=== PATIENT | male | born 1985 | race Two or more races ===

== ENCOUNTER 2017-03-22 14:44 | Emergency (ER) | payer SELFPAY ==
[~2017-03-22] VITALS: Ht 167.6 cm; Wt 83.9 kg
[2017-03-22] MEDS ORDERED: TYLENOL EXTRA500 MG ORAL (17:05)
[2017-03-22] MEDS ORDERED: ROBAXIN-750750 MG PO (17:05)
[2017-03-22 17:10] VITALS: BP 151/119
--- NOTE | 2017-03-22 23:43 | Emergency Room Report ---
History of Present Illness General Chief Complaint: Headache Source: Patient Present Illness HPI The patient is a 31-year-old male who denies any medical history presenting for headache and pain/ numbness to the left arm. He states that this began at approximately 8 AM this morning. He states that he was feeling anxious and then the symptoms began. Headache described as an 8/10 dull ache to the back of the head. the pain radiates down the neck and the left arm. He denies previous neck injury. He denies any other symptoms including N, V, F, CP, SOB, dizziness, blurred vision Allergies: Coded Allergies: ASPIRIN (Verified Allergy, Unknown, 03/22/17) Patient History Past Medical History: see triage record Pertinent Family History: none Reviewed Nursing Documentation: PMH: Agreed, PSxH: Agreed Nursing Documentation-PMH Past Medical History: No Stated History Review of Systems All Other Systems: negative except mentioned in HPI Physical Exam Vital Signs Date Time Temp Pulse Resp B/P (MAP) Pulse Ox O2 Delivery O2 Flow Rate FiO2 03/22/17 14:49 98.2 98 16 148/83 99 Room Air Sp02 EP Interpretation: reviewed, normal General Appearance: no apparent distress, alert, GCS 15, non-toxic Head: normocephalic, atraumatic Eyes: bilateral eye normal inspection, bilateral eye PERRL ENT: hearing grossly normal, normal pharynx, no angioedema, normal voice Neck: full range of motion, no bony tend, supple/symm/no masses, tender lateral - L Respiratory: chest non-tender, lungs clear, normal breath sounds, speaking full sentences Cardiovascular #1: regular rate, rhythm, no edema Gastrointestinal: normal bowel sounds, non tender, soft, non-distended, no guarding, no rebound Musculoskeletal: back normal, gait/station normal, normal range of motion, non- tender Neurologic: alert, oriented x3, responsive, motor strength/tone normal, sensory intact, speech normal Psychiatric: judgement/insight normal, memory normal, mood/affect normal, no suicidal/homicidal ideation Skin: normal color, no rash, warm/dry, well hydrated Medical Decision Making PA Attestation Dr. Gramajo is my supervising physician. Patient management was discussed with my supervising physician Diagnostic Impression: Primary Impression: Muscle strain Additional Impression: Headache Qualified Codes: R51 - Headache ER Course The patient is a 31-year-old male who denies any medical history presenting for headache and pain/ numbness to the left arm. Differential diagnoses include but not limited to anxiety, migraine, CVA, among others PE: vitals stable. NAD Head is NC/AT. Neck soft and supple. L sided TTP RRR Lungs CTA bilat CN II-XII grossly intact. CT scan of head and C-spine both unremarkable. The patient states the symptoms have resolved. Will be discharged home. ER precautions are given CT/MRI/US Diagnostic Results CT/MRI/US Diagnostic Results #1: Imaging Test Ordered: CT head Impression unremarkable CT/MRI/US Diagnostic Results #2: Imaging Test Ordered: CT C spine Impression unremarkable Last Vital Signs Date Time Temp Pulse Resp B/P (MAP) Pulse Ox O2 Delivery O2 Flow Rate FiO2 03/22/17 17:10 97.8 96 18 151/119 98 Room Air Status: improved Disposition: HOME, SELF-CARE Condition: Improved Scripts Acetaminophen* (TYLENOL EXTRA STRENGTH*) 500 Mg Tablet 500 MG ORAL Q8H Y for Prn Headache/Temp > 101, #30 TAB 0 Refills Prov: ROCÍO LIZ 03/22/17 Methocarbamol* (ROBAXIN-750*) 750 Mg Tablet 750 MG PO TID, #21 TAB 0 Refills Prov: ROCÍO LIZ. 03/22/17 Referrals: NOT CHOSEN [facility]/MD,REFERRING (PCP) Patient Instructions: Muscle Strain, [id number], General Headache Without Cause Additional Instructions: I discussed my findings with the patient. All questions and concerns have been answered. Treatment and medication compliance have been addressed. I advised the patient that they need to follow up with PMD in 3-5 days. Return to ED if symptoms worsen, new symptoms arise, or if needed for any reason. Patient verbalized understanding of discharge instructions. ROCÍO LIZ Mar 22, 2017 23:43
--- NOTE | 2017-03-23 10:29 | Diagnostic Imaging Report ---
Indication: Neck pain and trauma Technique: Continuous helical imaging of the cervical spine was obtained transaxially from the skull base to the upper thoracic spine. 2-D coronal and sagittal reformatted images were obtained. Automatic Exposure Control was utilized. Total Dose length Product (DLP): 441.[address] Dose Index Volume (CTDIvol): 21.88 mGy Comparison: None Findings: There is no evidence of an acute fracture or malalignment. Atlantoaxial alignment appears normal. Height and configuration of the vertebral bodies and intervertebral discs are within normal limits. Uncovertebral joints and facets are unremarkable. There is no soft tissue swelling. Impression: Negative cervical spine CT The CT scanner at [facility] [place] is accredited by the [employer] and the scans are performed using dose optimization techniques as appropriate to a performed exam including Automatic Exposure control.
--- NOTE | 2017-03-23 11:19 | Diagnostic Imaging Report ---
Indication: Headache Technique: Contiguous 5 mm thick transaxial imaging of the head obtained in a Siemens Sensation [address] scanner. Soft tissue and bone windows generated. Automatic Exposure Control was utilized. Total Dose length Product (DLP): 1435.[address] Dose Index Volume (CTDIvol): 70.38 mGy Comparison: none Findings: The size and configuration of the cortical sulci, basal cisterns, and ventricles are within normal limits for age. There is no mass effect, midline shift, or edema identified. There is no evidence of acute hemorrhage or abnormal intra-axial or extra-axial fluid collections. The bones and soft tissues are unremarkable. Impression: No mass effect, edema or acute bleed. [facility] has communicated the preliminary results to the Emergency Department. Their findings are largely concordant with this report. The CT scanner at [facility] is accredited by the [employer] and the scans are performed using dose optimization techniques as appropriate to a performed exam including Automatic Exposure control.
== END 2017-03-22 17:10 | disposition home or self-care (01) ==
LOC: EMR 15:05
DX: S46.912A Strain of unspecified muscle, fascia and tendon at shoulder and upper arm level, left arm, initial encounter (principal); X58.XXXA Exposure to other specified factors, initial encounter; Y92.9 Unspecified place or not applicable; R51 Headache; M54.2 Cervicalgia
CPT/HCPCS: 70450; 72125; 99284

== ENCOUNTER 2018-11-22 23:08 | Emergency (ER) | payer SELFPAY ==
[~2018-11-22] VITALS: Ht 167.6 cm; Wt 90.7 kg
[~2018-11-22 23:08] MED LIST: ROBAXIN-750750 MG PO; TYLENOL EXTRA500 MG ORAL
[2018-11-22 23:15] VITALS: BP 153/96
[2018-11-22] MEDS ORDERED: Ketorolac 30mg Inj IV ONE (23:45)
[2018-11-22 23:50] LABS: BASOPHILS % (AUTO) 1.6 % (0.0-2.0); EOSINOPHILS % (AUTO) 1.2 % (0.0-3.0); HEMOGLOBIN 14.7 G/DL (14.2-18.0); LYMPHOCYTES % (AUTO) 31.4 % (20.0-45.0); MEAN CORPUSCULAR VOLUME 88 FL (80-99); MONOCYTES % (AUTO) 9.3 % (1.0-10.0); NEUTROPHILS % (AUTO) 56.5 % (45.0-75.0); PLATELET COUNT 492 K/UL (150-450); RED BLOOD COUNT 5.12 M/UL (4.70-6.10); RED CELL DISTRIBUTION WIDTH 12.4 % (11.6-14.8); WHITE BLOOD COUNT 12.6 K/UL (4.8-10.8)
[2018-11-22 23:53] LABS: APPEARANCE,URINE CLEAR; BILIRUBIN, URINE NEGATIVE (NEGATIVE); COLOR,URINE PALE YELLOW; GLUCOSE, URINE (UA) NEGATIVE (NEGATIVE); KETONES,URINE NEGATIVE (NEGATIVE); LEUKOCYTE ESTERASE ,URINE 2+ (NEGATIVE); NITRITE,URINE NEGATIVE (NEGATIVE); PH,URINE 6.5 (4.5-8.0); PROTEIN,URINE NEGATIVE (NEGATIVE); UROBILINOGEN,URINE NORMAL MG/DL (0.0-1.0)
--- NOTE | 2018-11-22 23:56 | Emergency Room Report ---
History of Present Illness General Chief Complaint: Abdominal Pain Source: Patient Present Illness HPI This is a 33-year-old male with no past medical history. He presents with chief complaint abdominal pain. Onset for about a week to week and half now. Pain is to the lower quadrant. He has diarrhea for a week. No vomiting. When he eats he has nausea. No fever chills. No urinary complaint. Pain is crampy in nature. 7 out of 10. He also has a history of pilonidal abscess that was I& D at [facility] a year ago. Occasionally he gets some pain and drainage over that area. No redness. Worse with palpation. Allergies: Coded Allergies: ASPIRIN (Verified Allergy, Unknown, 03/22/17) Patient History Past Medical History: none, see triage record, old chart reviewed Past Surgical History: none Pertinent Family History: none Social History: Denies: smoking Immunizations: other Reviewed Nursing Documentation: PMH: Agreed; PSxH: Agreed Nursing Documentation-PMH Past Medical History: No Stated History Review of Systems Eye: Denies: eye pain, blurred vision ENT: Denies: ear pain, nose congestion, throat swelling Respiratory: Denies: cough, shortness of breath Cardiovascular: Denies: chest pain, palpitations Gastrointestinal: Reports: abdominal pain; Denies: diarrhea, nausea, vomiting Musculoskeletal: Denies: back pain, joint pain Skin: Denies: rash Neurological: Denies: headache, numbness Endocrine: Denies: increased thirst, increased urine Hematologic/Lymphatic: Denies: easy bruising All Other Systems: negative except mentioned in HPI Physical Exam Vital Signs Date Time Temp Pulse Resp B/P (MAP) Pulse Ox O2 Delivery O2 Flow Rate FiO2 11/22/18 23:11 99.0 102 18 153/96 (115) 98 Room Air Vitals with high blood pressure Sp02 EP Interpretation: reviewed, normal General Appearance: well appearing, no apparent distress, alert Head: normocephalic, atraumatic Eyes: bilateral eye PERRL, bilateral eye EOMI ENT: hearing grossly normal, normal pharynx Neck: full range of motion, supple, no meningismus Respiratory: chest non-tender, lungs clear, normal breath sounds Cardiovascular #1: regular rate, rhythm, no murmur Gastrointestinal: normal bowel sounds, non tender, no mass, no organomegaly, no bruit, non-distended Rectal: other - Pilonidal area: There is a pinpoint opening with very scant discharge. No erythema. Musculoskeletal: back normal, gait/station normal, normal range of motion Psychiatric: mood/affect normal Medical Decision Making Diagnostic Impression: Primary Impression: Diverticulitis large intestine Qualified Codes: K57.32 - Diverticulitis of large intestine without perforation or abscess without bleeding Additional Impressions: Horseshoe kidney Pilonidal cyst ER Course Patient with abdominal pain. He has a diverticulitis. Also with a horseshoe kidney. No complication. Will discharge home. CT/MRI/US Diagnostic Results CT/MRI/US Diagnostic Results : Imaging Test Ordered: CT abdomen pelvis Impression Read by radiologist. Horseshoe kidney with the hydronephrosis. Acute diverticulitis of descending colon. Last Vital Signs Date Time Temp Pulse Resp B/P (MAP) Pulse Ox O2 Delivery O2 Flow Rate FiO2 11/22/18 23:15 99.0 107 18 153/96 98 Room Air Status: improved Disposition: HOME, SELF-CARE Condition: Stable Scripts Mupirocin* (MUPIROCIN*) 22 Gm Oint...g. 1 APPLIC TOPIC THREE TIMES A DAY, #22 GM Prov: Valente Magallon MD 11/23/18 Metronidazole* (FLAGYL*) 500 Mg Tablet 500 MG ORAL BID, #14 TAB Prov: Valente Magallon MD 11/23/18 Ciprofloxacin Hcl* (CIPROFLOXACIN HCL*) 500 Mg Tablet 500 MG ORAL Q12H, #14 TAB 0 Refills Prov: Valente Magallon MD 11/23/18 Referrals: NOT CHOSEN [facility]/,REFERRING (PCP) Additional Instructions: Follow-up with your doctor in a week for follow-up. Clean pilonidal area with hydrogen peroxide and then apply antibiotic ointment. Cover with dressing. Return if symptoms worsen. Valente Magallon MD Nov 22, 2018 23:56
[2018-11-22 23:57] LABS: ANION GAP 9 mmol/L (5-15); BLOOD UREA NITROGEN 14 mg/dL (7-18); CARBON DIOXIDE 25 MMOL/L (21-32); CHLORIDE 104 MMOL/L (98-107); CREATININE 0.9 MG/DL (0.55-1.30); POTASSIUM 3.5 MMOL/L (3.5-5.1); SODIUM 138 MMOL/L (136-145)
[2018-11-23 00:04] LABS: ALANINE AMINOTRANSFERASE 39 U/L (12-78); ALBUMIN 3.9 G/DL (3.4-5.0); ALBUMIN/GLOBULIN RATIO 0.8 (1.0-2.7); ALKALINE PHOSPHATASE 84 U/L (46-116); ASPARTATE AMINO TRANSFERASE 11 U/L (15-37); BILIRUBIN,TOTAL 0.2 MG/DL (0.2-1.0)
--- NOTE | 2018-11-23 00:42 | Diagnostic Imaging Report ---
Indication: Abdominal pain for one week Technique: Spiral acquisitions obtained through the abdomen and pelvis. No oral contrast utilized, per emergency room physician request No IV contrast utilized, per referring physician request.. Multiplanar reconstructions were generated. Total dose length product 961.77 mGycm. CTDIvol(s) 18.6 mGy. Dose reduction achieved using automated exposure control Comparison: None Findings: The appendix is normal. There is colonic diverticulosis. There is infiltration of the pericolonic fat at the junction of the distal descending of the proximal sigmoid colon. No extraluminal gas or loculated fluid collections are evident. No small bowel distention. No free or loculated intraperitoneal gas or fluid. The distal esophagus, stomach, duodenum are unremarkable. Lack of IV contrast limits assessment of the solid organs. There is a horseshoe kidney. A cyst is seen in the isthmus. There is a 3 mm calcification in the lower pole of the right moiety, presumably in a calyx there is no evidence of hydronephrosis or hydroureter. No ureteral calculi demonstrated. The liver, gallbladder, bile ducts, pancreas, spleen, adrenals are all unremarkable. No retroperitoneal or mesenteric mass or adenopathy. No pelvic mass or adenopathy. Unremarkable bladder. Patchy area of groundglass opacity is seen at the left lung base. The bones are unremarkable. Impression: Evidence of uncomplicated acute distal descending/proximal sigmoid diverticulitis Horseshoe kidney. Right moiety calyceal calculus and isthmic cyst noted Left basilar groundglass opacity, nonspecific but could represent an area of inflammation/pneumonia. Correlate with clinical findings This essentially agrees with the preliminary interpretation provided overnight by [facility]. The CT scanner at [facility] is accredited by the [employer] and the scans are performed using protocols designed to limit radiation exposure to as low as reasonably achievable to attain images of sufficient resolution adequate for diagnostic evaluation.
[2018-11-23] MEDS ORDERED: METRONIDAZOLE500 MG ORAL (01:04)
[2018-11-23] MEDS ORDERED: MUPIROCIN22 GM TOPIC (01:04)
[2018-11-23] MEDS ORDERED: CIPROFLOXACIN500 M2 ORAL (01:04)
[2018-11-23 01:12] VITALS: BP_SYST 147; BP_DIAS 92; BP_DIAS 94
[2018-11-23] MEDS ORDERED: Ciprofloxacin 500mg tab ORAL ONE (01:15)
[2018-11-23] MEDS ORDERED: metroNIDAZOLE 500mg tab ORAL ONE (01:15)
== END 2018-11-23 01:13 | disposition home or self-care (01) ==
LOC: EMR 23:45
DX: K57.32 Diverticulitis of large intestine without perforation or abscess without bleeding (principal); L05.91 Pilonidal cyst without abscess; Q63.1 Lobulated, fused and horseshoe kidney; N13.30 Unspecified hydronephrosis
CPT/HCPCS: 36415; 74176; 80053; 81003; 83690; 85025; 87086; 96374; 99284; J1885